=== PATIENT | male | born 1995 | race Caucasian/White ===

== ENCOUNTER 2017-06-16 11:02 | Emergency (ER) | payer MEDICAID ==
[~2017-06-16] VITALS: Ht 188 cm; Wt 83.0 kg
[2017-06-16 12:50] VITALS: BP 126/76
== END 2017-06-16 12:53 | disposition home or self-care (01) ==
LOC: ED 12:47
DX: S39.011A Strain of muscle, fascia and tendon of abdomen, initial encounter (principal); W19.XXXA Unspecified fall, initial encounter; Y93.89 Activity, other specified; Y99.8 Other external cause status; Y92.59 Other trade areas as the place of occurrence of the external cause
CPT/HCPCS: 72190; 99284

== ENCOUNTER 2021-05-16 06:41 | Emergency (ER) | payer MEDICAID, OTHER ==
[~2021-05-16] VITALS: Ht 188 cm; Wt 95.6 kg
--- NOTE | 2021-05-16 06:45 | NUR ---
NIL X 1
--- NOTE | 2021-05-16 07:41 | NUR ---
PT TO ROOM 37 FROM [facility], GAIT STEADY. PT PRESENTS TO ED WITH C/O STERNAL CHEST PRESSURE AND SOB X 2 DAYS, STATES HE BEGAN A NEW POSITION IN CONSTRUCTION AND BELIEVES INHALATION OF DEBRIS HAS CAUSED SYMPTOMS. PT DENIES INFECTIOUS SYMPTOMS. PT STATES CHEST PRESSURE IS NON-RADIATING, NO AGGRAVATING/ALLEVIATING FACTORS. ALL MONITORS IN PLACE, PT IS NSR ON CHECK AIRMAN WITH NO ECTOPY. EKG TAKEN IN TRIAGE. PT ABLE TO SPEAK IN FULL SENTENCES WITHOUT DIFFICULTY. EDMD NATALIIA AT BEDSIDE FOR INITIAL ASSESSMENT.
--- NOTE | 2021-05-16 09:00 | NUR ---
PT RESTING ON GURTERRIE, A&O, RESPS EVEN AND UNLABORED. SINUS BRADYCARDIAC RATE 40'S-50'S WITH NO ECTOPY. CALL LIGHT IN REACH. AWAITING IMAGING RESULTS AND DISPO.
--- NOTE | 2021-05-16 09:57 | NUR ---
ALL RESULTS BACK, CHART UP FOR RECHECK, AWAITING MD AND DISPO.
[2021-05-16 10:24] VITALS: BP 99/60
--- NOTE | 2021-05-16 10:24 | NUR ---
pt given dc instructions and script, educated regarding rx for albuterol inhaler. pt a&o, resps even and unlabored, ambulatory to dc desk with steady gait. all questions answered.
== END 2021-05-16 10:26 | disposition home or self-care (01) ==
LOC: ED 09:36
DX: R06.00 Dyspnea, unspecified (principal); F17.210 Nicotine dependence, cigarettes, uncomplicated; R06.02 Shortness of breath
CPT/HCPCS: 71046; 93005; 99285